=== PATIENT | male | born 1950 | race Caucasian/White ===

== ENCOUNTER 2017-08-19 06:00 | Day surgery (SDC) | payer OTHER ==
[~2017-08-19 06:00] MED LIST: CRESTOR10 MG PO; NIFE60TA3 PO; TOPROL XL50 M1 PO
== END 2017-08-19 11:40 | disposition home or self-care (01) ==
LOC: CIR.AMB 06:00
DX: D12.8 Benign neoplasm of rectum (principal); D12.9 Benign neoplasm of anus and anal canal; K64.2 Third degree hemorrhoids; K64.8 Other hemorrhoids; K64.5 Perianal venous thrombosis

== ENCOUNTER 2017-08-20 14:55 | Emergency (ER) | payer OTHER ==
[~2017-08-20] VITALS: Ht 167.6 cm; Wt 79.4 kg
== END 2017-08-20 20:19 | disposition home or self-care (01) ==
LOC: ER 14:55
DX: K91.841 Postprocedural hemorrhage of a digestive system organ or structure following other procedure (principal); Y83.8 Other surgical procedures as the cause of abnormal reaction of the patient, or of later complication, without mention of misadventure at the time of the procedure; Y92.89 Other specified places as the place of occurrence of the external cause